=== PATIENT | female | born 1945 | race Caucasian/White ===

== ENCOUNTER 2021-12-03 08:34 | Outpatient (CLI) | payer MEDICARE | END 2021-12-03 08:35 | disposition home or self-care (01) | LOC: CSHMRI 08:34 | PROVIDERS: ATTEND Family Medicine | DX: M54.12 Radiculopathy, cervical region (principal); M47.812 Spondylosis without myelopathy or radiculopathy, cervical region; M50.322 Other cervical disc degeneration at C5-C6 level | CPT/HCPCS: 72141 ==

== ENCOUNTER 2022-03-12 14:29 | Outpatient (CLI) | payer MEDICARE | END 2022-03-12 14:30 | disposition home or self-care (01) | LOC: CSHMRI 14:29 | PROVIDERS: ATTEND Family Medicine | DX: R51.9 Headache, unspecified (principal); E22.1 Hyperprolactinemia; I67.89 Other cerebrovascular disease | CPT/HCPCS: 70553; 82565 ==

== ENCOUNTER 2023-06-14 07:26 | Outpatient (CLI) | payer MEDICARE ==
[2023-06-14] MEDS ORDERED: Iopamidol 370 76% 100 ML VIAL ONE (09:06)
== END 2023-06-14 07:27 | disposition home or self-care (01) ==
LOC: CSHCT 07:26
PROVIDERS: ATTEND Specialist
DX: I65.23 Occlusion and stenosis of bilateral carotid arteries (principal); I70.8 Atherosclerosis of other arteries; R91.8 Other nonspecific abnormal finding of lung field; Z86.73 Personal history of transient ischemic attack (TIA), and cerebral infarction without residual deficits
CPT/HCPCS: 70498; 82565

== ENCOUNTER → 2025-01-04 | Day surgery (SDC) | payer MEDICARE ==
[~2025-01-04] MED LIST: CEFAZOLIN 1 GM VIAL ONE; Gentamicin 80 MG/2 ML VIAL ONE; Ketorolac Tromethamine 10 MG TAB PO SCH; Lidocaine 1% (PF) 30 ML VIAL ONE; Midazolam HCl 2 mg/2 ml Vial ONE; diphenhydrAMINE 50 MG/ML VIAL ONE; fentaNYL 50 mcg/mL 1 mL Vial ONE
[2025-01-04 11:40] LABS: #Eosinophils 0.34 10x3/uL (0.0-0.5); #Monocytes 0.62 10x3/uL (0.0-1.1); #Neutrophils 5.63 10x3/uL (1.5-8.4); %Basophils 1.1 % (0.0-2.0); %Eosinophils 3.7 % (0.0-6.0); %Lymphocytes 27.4 % (18.0-47.0); %Monocytes 6.7 % (0.0-10.0); %Neutrophils 60.8 % (40.0-75.0); Hematocrit 39.1 % (34.9-44.5); Hemoglobin 12.8 g/dL (12.0-15.5); Mean Corpuscular HGB CONC 32.7 g/dL (32.0-36.0); Mean Corpuscular Hemoglobin 29.2 pg (27.0-33.0); Mean Corpuscular Volume 89.1 fL (81.6-98.3); Mean Platelet Volume 10.5 fL (7.4-10.4); Platelet Count 232 10x3/uL (150-450); RBC Distribution Width 15.7 % (11.5-14.5); Red Blood Cell (RBC) Count 4.39 10x6/uL (3.90-5.03); White Blood Cell (WBC) Count 9.26 10x3/uL (3.5-10.5)
[2025-01-04 11:53] LABS: PTT 33.3 sec (22.0-33.0); Prothrombin Time 10.8 sec (9.5-12.1)
== END ==
LOC: CSHSDC 10:55
PROVIDERS: ATTEND Specialist
PROC: 02WA0MZ Revision of Cardiac Lead in Heart, Open Approach (ICD-10-PCS; principal; 2025-01-04)
DX: T82.120A Displacement of cardiac electrode, initial encounter (principal); I65.23 Occlusion and stenosis of bilateral carotid arteries; I10 Essential (primary) hypertension; I48.19 Other persistent atrial fibrillation; E78.2 Mixed hyperlipidemia; Y83.1 Surgical operation with implant of artificial internal device as the cause of abnormal reaction of the patient, or of later complication, without mention of misadventure at the time of the procedure
CPT/HCPCS: 33215; 85025; 85610; 85730; 93005; J0690; J1580; J2250; J3010; 99152; 99153; J1200

== ENCOUNTER 2025-02-09 11:28 | Outpatient (CLI) | payer MEDICARE | END 2025-02-09 11:29 | disposition home or self-care (01) | LOC: CSHRAD 11:28 | PROVIDERS: ATTEND Nurse Practitioner | DX: I49.5 Sick sinus syndrome (principal); Z95.0 Presence of cardiac pacemaker; T82.110A Breakdown (mechanical) of cardiac electrode, initial encounter; T82.120A Displacement of cardiac electrode, initial encounter | CPT/HCPCS: 71046 ==

== ENCOUNTER 2025-02-22 09:42 | Outpatient (CLI) | payer MEDICARE ==
[2025-02-22 10:31] LABS: Hematocrit 38.2 % (34.9-44.5); Hemoglobin 12.7 g/dL (12.0-15.5); Mean Corpuscular Hemoglobin 30.5 pg (27.0-33.0); Mean Corpuscular Volume 91.8 fL (81.6-98.3); Platelet Count 255 10x3/uL (150-450); Red Blood Cell (RBC) Count 4.16 10x6/uL (3.90-5.03); White Blood Cell (WBC) Count 7.53 10x3/uL (3.5-10.5)
[2025-02-22 10:58] LABS: Anion Gap 16 mmol/L (10-20); BUN (Urea Nitrogen) 17 mg/dL (9.8-20.1); Calc. Creatinine Clearance 0 mL/min (70-130); Calcium 8.7 mg/dL (7.8-10.44); Carbon Dioxide 19 mmol/L (23-31); Chloride 110 mmol/L (98-107); Glucose 93 mg/dL (83-110); INR-International Normal Ratio 1.1; Potassium 4.8 mmol/L (3.5-5.1); Prothrombin Time 12.0 sec (9.5-12.1); Sodium 140 mmol/L (136-145)
== END 2025-02-22 09:43 | disposition home or self-care (01) ==
LOC: CSHLAB 09:42
PROVIDERS: ATTEND Internal Medicine
DX: Z01.812 Encounter for preprocedural laboratory examination (principal); I49.5 Sick sinus syndrome; T82.120A Displacement of cardiac electrode, initial encounter
CPT/HCPCS: 80048; 85027; 85610

== ENCOUNTER 2025-05-22 06:27 | Inpatient (IN) | payer MEDICARE ==
[2025-05-22 07:34] LABS: #Basophils 0.09 10x3/uL (0.0-0.2); #Eosinophils 0.28 10x3/uL (0.0-0.5); #Monocytes 0.67 10x3/uL (0.0-1.1); #Neutrophils 4.67 10x3/uL (1.5-8.4); %Basophils 1.1 % (0.0-2.0); %Eosinophils 3.3 % (0.0-6.0); %Lymphocytes 32.6 % (18.0-47.0); %Monocytes 7.8 % (0.0-10.0); %Neutrophils 54.5 % (40.0-75.0); Hematocrit 39.0 % (34.9-44.5); Hemoglobin 12.9 g/dL (12.0-15.5); Mean Corpuscular Hemoglobin 31.2 pg (27.0-33.0); Mean Corpuscular Volume 94.4 fL (81.6-98.3); Platelet Count 266 10x3/uL (150-450); Red Blood Cell (RBC) Count 4.13 10x6/uL (3.90-5.03); White Blood Cell (WBC) Count 8.56 10x3/uL (3.5-10.5)
[2025-05-22] MEDS ORDERED: PHENYLEPHRINE-NS 100 MCG/ML 10 ML SYRINGE ONE (07:42)
[2025-05-22] MEDS ORDERED: Lidocaine 1% (PF) 30 ML VIAL ONE ×2 (07:42→07:50)
[2025-05-22] MEDS ORDERED: Nitroglycerin 50 MG/250 ML BOT 0 ML ONE (07:42)
[2025-05-22] MEDS ORDERED: Adenosine 6 mg (2 mL) VIAL ONE (07:43)
[2025-05-22] MEDS ORDERED: Heparin 10,000 UNITS/ 10 ML VIAL ONE (07:44)
[2025-05-22] MEDS ORDERED: Phenylephrine 40 MG/NS 250 ML 250 ML ONE (07:44)
[2025-05-22 07:45] LABS: Anion Gap 13 mmol/L (10-20); BUN (Urea Nitrogen) 22 mg/dL (9.8-20.1); Calc. Creatinine Clearance 0 mL/min (70-130); Calcium 9.1 mg/dL (7.8-10.44); Carbon Dioxide 21 mmol/L (23-31); Chloride 108 mmol/L (98-107); Glucose 90 mg/dL (83-110); Potassium 4.0 mmol/L (3.5-5.1); Sodium 138 mmol/L (136-145)
[2025-05-22 07:58] LABS: INR-International Normal Ratio 1.0; Prothrombin Time 10.7 sec (9.5-12.1)
[2025-05-22] MEDS ORDERED: Melatonin 3 MG TAB PO PRN (08:59)
[2025-05-22] MEDS ORDERED: Acetaminophen 325 MG TAB PO PRN (08:59)
[2025-05-22] MEDS ORDERED: Senokot S 8.6-50 MG TAB PO PRN (08:59)
[2025-05-22] MEDS ORDERED: Acetaminophen/Codeine 30-300mg Tablet PO PRN ×2 (08:59)
[2025-05-22] MEDS ORDERED: Calcium Carbonate 500 MG ChewTAB PO PRN (08:59)
[2025-05-22] MEDS ORDERED: Nitroglycerin 0.4 MG TAB (25 Tab Bottle) SL PRN (09:32)
[2025-05-22] MEDS ORDERED: Phenylephrine 40 MG/NS 250 ML 250 ML IVPB SCH (09:45)
[2025-05-22] MEDS ORDERED: Iopamidol 300 61% 100 ML VIAL FS ONE (10:41)
[2025-05-22 11:16] VITALS: BMI 30.2
[2025-05-22] MEDS ORDERED: Phenylephrine 40 MG/NS 250 ML 40 MG in Premix 1 BAG IVPB SCH (11:45)
[2025-05-22] MEDS: Ketorolac Tromethamine 30 MG (1 mL) VIAL IVP PRN (15:00)
[2025-05-22] MEDS: Mupirocin 1 GM TUBE TP SCH (20:56)
[2025-05-22] MEDS: Apixaban 5 MG TAB PO SCH (21:00)
[2025-05-22 23:07] LABS: Glucose, Urine (Dipstick) Normal (Negative); Leukocyte Negative (Negative); Protein, Urine (Dipstick) Negative (Neg-Trace); Specific Gravity, Urine 1.010 (1.005-1.030)
[2025-05-23 05:23] LABS: #Basophils 0.06 10x3/uL (0.0-0.2); #Eosinophils 0.34 10x3/uL (0.0-0.5); #Monocytes 0.49 10x3/uL (0.0-1.1); #Neutrophils 4.72 10x3/uL (1.5-8.4); %Basophils 0.9 % (0.0-2.0); %Eosinophils 4.8 % (0.0-6.0); %Lymphocytes 19.9 % (18.0-47.0); %Monocytes 7.0 % (0.0-10.0); %Neutrophils 67.1 % (40.0-75.0); Hematocrit 33.8 % (34.9-44.5); Hemoglobin 11.0 g/dL (12.0-15.5); Mean Corpuscular Hemoglobin 30.9 pg (27.0-33.0); Mean Corpuscular Volume 94.9 fL (81.6-98.3); Platelet Count 212 10x3/uL (150-450); Red Blood Cell (RBC) Count 3.56 10x6/uL (3.90-5.03); White Blood Cell (WBC) Count 7.03 10x3/uL (3.5-10.5)
[2025-05-23 05:35] LABS: Anion Gap 11 mmol/L (10-20); BUN (Urea Nitrogen) 14 mg/dL (9.8-20.1); Calc. Creatinine Clearance 58 mL/min (70-130); Calcium 8.0 mg/dL (7.8-10.44); Carbon Dioxide 20 mmol/L (23-31); Chloride 112 mmol/L (98-107); Glucose 83 mg/dL (83-110); Potassium 3.9 mmol/L (3.5-5.1); Sodium 139 mmol/L (136-145)
[2025-05-23] MEDS ORDERED: Dextroamphetamine/Amphetamine [Adderall] 10 MG PO SCH (09:00)
[2025-05-23] MEDS: Pantoprazole 40 MG DR.TAB PO SCH (09:27)
[2025-05-23] MEDS: PNEUMOC 20-VAL CONJ-DIP CRM/PF 0.5 ML SYRINGE IM ONE (09:29)
[2025-05-23] MEDS: lamoTRIgine 100 MG TAB PO SCH (09:29)
[2025-05-23] MEDS: FLU (Fluad Triv) 25-26 (65UP)PF 45 MCG/0.5 ML Syringe IM ONE (09:33)
[2025-05-23 12:18] VITALS: TEMP 98.2
[2025-05-23 13:52] VITALS: BP 98/55
== END 2025-05-23 13:35 | disposition home or self-care (01) | DRG 36 ==
LOC: CSHTELE 06:27 → CSHICU 09:51 → EDSTATUS 10:28
PROVIDERS: ADMIT Specialist; ATTEND Specialist
PROC: 037K3DZ Dilation of Right Internal Carotid Artery with Intraluminal Device, Percutaneous Approach (ICD-10-PCS; principal; 2025-05-22)
PROC: 3E02340 Introduction of Influenza Vaccine into Muscle, Percutaneous Approach (ICD-10-PCS; 2025-05-22)
PROC: 3E0234Z Introduction of Serum, Toxoid and Vaccine into Muscle, Percutaneous Approach (ICD-10-PCS; 2025-05-22)
PROC: 3E033XZ Introduction of Vasopressor into Peripheral Vein, Percutaneous Approach (ICD-10-PCS; 2025-05-22)
PROC: 5A09357 Assistance with Respiratory Ventilation, Less than 24 Consecutive Hours, Continuous Positive Airway Pressure (ICD-10-PCS; 2025-05-23)
DX: I65.21 Occlusion and stenosis of right carotid artery (principal); I48.0 Paroxysmal atrial fibrillation; I25.10 Atherosclerotic heart disease of native coronary artery without angina pectoris; I10 Essential (primary) hypertension; I49.5 Sick sinus syndrome; K21.9 Gastro-esophageal reflux disease without esophagitis; E03.9 Hypothyroidism, unspecified; F98.8 Other specified behavioral and emotional disorders with onset usually occurring in childhood and adolescence; I08.0 Rheumatic disorders of both mitral and aortic valves; Z23 Encounter for immunization; E78.5 Hyperlipidemia, unspecified; Z88.0 Allergy status to penicillin; Z88.2 Allergy status to sulfonamides; Z95.0 Presence of cardiac pacemaker; Z88.8 Allergy status to other drugs, medicaments and biological substances; Z86.73 Personal history of transient ischemic attack (TIA), and cerebral infarction without residual deficits; Z90.49 Acquired absence of other specified parts of digestive tract; Z98.890 Other specified postprocedural states; Z90.710 Acquired absence of both cervix and uterus; Z96.653 Presence of artificial knee joint, bilateral; Z87.891 Personal history of nicotine dependence; Z79.01 Long term (current) use of anticoagulants; Z79.82 Long term (current) use of aspirin; Z79.899 Other long term (current) drug therapy; Z79.890 Hormone replacement therapy
CPT/HCPCS: 36216; 36222; 36415; 37215; 80048; 81003; 85025; 85347; 85610; 90471; 90653; 90677; 93005; 99152; 99153; C1725; C1769; C1876; C1884; C1894; G0009; J0153; J0461; J1644; J1885; J2003; J2250; J3010; Q9967